=== PATIENT | male | born 1960 | race Caucasian/White ===

== ENCOUNTER 2025-11-03 06:15 | Day surgery (SDC) | payer BC, SELFPAY ==
--- NOTE | 2025-10-14 14:15 | CM ---
Demographics: confirmed
Living situation:Lives independently with
Support Person Post Operatively:
History of
VN: no
SNF: no
Outpatient: [facility] appointment made for 11/07
Has patient purchased required equipment: walker
PCP: Rafy
Pharmacy: [facility]
Post Operative Discharge Plan: SDS, home with [facility]
[2025-10-20 13:06] VITALS: BMI 27.7
[2025-10-20 14:11] LABS: Hematocrit 43.5 % (39.0-52.0); Hemoglobin 14.8 g/dL (13.0-18.0); Mean Corp Hgb Conc. 34.0 g/dL (33.0-37.0); Mean Corpuscular Volume 84.5 fL (80.0-94.0); Platelet Count 262 10^3/uL (130-400); Red Cell Dist. Width 13.2 % (11.5-14.5)
[2025-10-20 15:02] LABS: ALT (SGPT) 43 U/L (0-50); AST (SGOT) 27 U/L (17-59); Albumin 4.5 g/dl (3.5-5.0); Alkaline Phosphatase 40 U/L (38-126); Blood Urea Nitrogen 19 mg/dl (9-20); Calcium 9.4 mg/dl (8.4-10.2); Carbon Dioxide 29 mmol/L (22-30); Chloride 100 mmol/L (98-107); Estimated Creatinine Clearance 78 ml/min; Glucose 107 mg/dl (70-99); Potassium 4.6 mmol/L (3.5-5.1); Sodium 135 mmol/L (135-145); Total Protein 7.4 g/dl (6.3-8.2); eGFR > 60.00
--- NOTE | 2025-10-20 15:32 | VNURNOTE ---
Patient is scheduled for an elective L TKA on 11/03 - he is a same day patient with Dr Ribera. Spoke with patient prior to surgery. Introduced role of [facility] Liaison. Patient reports that he lives with his in a MULTI story home.
Patient confirms that he has a rolling walker, crutches, cane.
Discussed [facility] joint protocol and post surgical plans.
Reviewed that he will have VN services initially and will then start outpatient PT.
Patient selects [facility] for his home care needs and will go to [facility] for outpatient PT. Scheduled for 11/07.
Patient is in agreement with plan and states that his will be home with him. Advised to bring RW with him day of surgery. Patient has a large dog and is aware of pet policy. Referral placed in [facility].
Plan: [facility] per [facility] joint protocol 11/03 then outpt PT on 11/07
[2025-10-20 16:42] VITALS: BMI 27.7
[2025-10-21 08:26] LABS: Glycohemoglobin (HgbA1c) 5.9 % (4.0-5.9)
[2025-11-03] VITALS (13 sets, daily range): BP systolic 113–148; BP diastolic 60–91; PULSE 84; O2SAT 97; BMI 27.7
[2025-11-03] MEDS: CELEBREX 200 MG PO (07:56)
[2025-11-03] MEDS: TYLENOL 650 MG PO (07:56)
[2025-11-03 07:57] LABS: Glucose - Point of Care 110 mg/dl (70-99)
[2025-11-03] MEDS: NORMOSOL-R/PLASMALYTE-A 1000 IV (07:57)
--- NOTE | 2025-11-03 07:57 | W.DS.TRANS ---
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
-
Discharge Instructions:
Sleep Apnea Risk High
Discharge Diagnosis/Procedures L knee OA s/p L TKA w/ Dr Ribera 11/03/25
Diet Diabetic, Carb Controlled
Additional Diets Adequate hydration, minimize opioids, and wear
TEDs stockings to prevent low blood pressure/
dizziness.
Activity As tolerated,With Walker
Driving Restrictions Not until seen by your Dr
Bathing Restrictions OK to Shower
Other Services PT,VN
Wound Care Leave dressing on until seen by surgeon's office
for follow-up.
Instructions:
Stand-Alone Forms: SDS Total Hip and Knee D/C
Changes to Home Medications: Yes
Discharge Medications:
DC Medications w/original date entered in [employer]
cholecalciferol (vitamin D3) 125 mcg (5,000 unit) tablet (Vitamin D3) 125 mcg PO HS 10/12/25
coQ10 (ubiquinol) 100 mg capsule 100 mg PO HS 10/12/25
Held on 11/03/25. Instructions: Resume on 11/11/25.
fenofibrate nanocrystallized 145 mg tablet 145 mg PO HS 10/12/25
metformin 500 mg tablet 1,000 mg PO BIDWMEAL 10/12/25
rosuvastatin 5 mg tablet (Crestor) 5 mg PO HS 10/12/25
cefadroxil 500 mg capsule 500 mg PO BID #14 caps 10/20/25
celecoxib 200 mg capsule (Celebrex) 200 mg PO DAILY #14 caps 10/20/25
famotidine 20 mg tablet (Pepcid) 20 mg PO HS #30 tabs 10/20/25
gabapentin 300 mg capsule 300 mg PO HS neuropathic pain/sleep #10 caps 10/20/25
mupirocin 2 % topical ointment 1 applic intranasal BID #1 tube 10/20/25
ondansetron HCl 4 mg tablet 4 mg PO Q6H PRN nausea and vomiting #30 tabs 10/20/25
oxycodone 5 mg tablet 5 - 10 mg (1 - 2 x 5 mg) PO Q6H PRN moderate-severe pain #30 tabs 10/20/25
Saccharomyces boulardii 250 mg capsule (Florastor) 250 mg PO BID #1 cap 11/03/25
acetaminophen 325 mg tablet (Tylenol) 650 mg (2 x 325 mg) PO QID #1 tab 11/03/25
aspirin 325 mg tablet 325 mg PO DAILY blood clot prevention #1 tab 11/03/25
docusate sodium 100 mg capsule (Colace) 100 mg PO BID stool softner #1 cap 11/03/25
lisinopril 10 mg tablet 10 mg PO HS #0 tabs 11/03/25
magnesium hydroxide 400 mg/5 mL oral suspension (Milk of Magnesia) 30 ml PO HS PRN constipation #1 mL 11/03/25
sennosides 8.6 mg tablet (Senokot) 17.2 mg (2 x 8.6 mg) PO BID laxative #2 tabs 11/03/25
Home Medication Changes
cefadroxil 500 mg capsule 500 mg PO BID #14 caps 10/20/25
celecoxib 200 mg capsule (Celebrex) 200 mg PO DAILY #14 caps 10/20/25
famotidine 20 mg tablet (Pepcid) 20 mg PO HS #30 tabs 10/20/25
gabapentin 300 mg capsule 300 mg PO HS neuropathic pain/sleep #10 caps 10/20/25
mupirocin 2 % topical ointment 1 applic intranasal BID #1 tube 10/20/25
ondansetron HCl 4 mg tablet 4 mg PO Q6H PRN nausea and vomiting #30 tabs 10/20/25
oxycodone 5 mg tablet 5 - 10 mg (1 - 2 x 5 mg) PO Q6H PRN moderate-severe pain #30 tabs 10/20/25
Saccharomyces boulardii 250 mg capsule (Florastor) 250 mg PO BID #1 cap 11/03/25
acetaminophen 325 mg tablet (Tylenol) 650 mg (2 x 325 mg) PO QID #1 tab 11/03/25
aspirin 325 mg tablet 325 mg PO DAILY blood clot prevention #1 tab 11/03/25
docusate sodium 100 mg capsule (Colace) 100 mg PO BID stool softner #1 cap 11/03/25
lisinopril 10 mg tablet 10 mg PO HS #0 tabs 11/03/25
magnesium hydroxide 400 mg/5 mL oral suspension (Milk of Magnesia) 30 ml PO HS PRN constipation #1 mL 11/03/25
sennosides 8.6 mg tablet (Senokot) 17.2 mg (2 x 8.6 mg) PO BID laxative #2 tabs 11/03/25
Pending Results: No
[2025-11-03 11:41] LABS: Glucose - Point of Care 167 mg/dl (70-99)
[2025-11-03] MEDS: ANCEF 5 IV (13:30)
[2025-11-03] MEDS: ROXICODONE 5 MG PO (14:10)
[2025-11-03] MEDS: TYLENOL 1000 MG PO (15:56)
--- NOTE | 2025-11-03 16:56 | OR.RPT ---
Operative Report
Operative Report
Orthopaedic Surgery Operative Note
DATE OF OPERATION: 11/03/2025
PREOPERATIVE DIAGNOSES: Osteoarthritis, left knee.
POSTOPERATIVE DIAGNOSES: Osteoarthritis, left knee.
OPERATION PERFORMED:
1) Left total knee arthroplasty (CPT 11409)
2) Intraosseous administration of analgesic (CPT 38222)
SURGEON: Ziggy Ribera MD
ASSISTANTS: Shahid Franz PA-C who helped with patient and limb positioning and retraction
ANESTHESIA: Spinal by anesthesia plus intraoperative infusion of morphine into the tibial metaphysis by Dr. Ribera
COMPLICATIONS: None.
ESTIMATED BLOOD LOSS: 20mL
DRAINS: None
TOURNIQUET TIME: 54 minutes.
IMPLANTS:
- Zuleima Persona CR Femur, size 10
- Zuleima Persona tibia base plate, size F
- Zuleima Persona ultracongruent articular surface, 10 mm
- DJO [place] bone cement
INDICATIONS: The patient presented to my office with debilitating left knee pain due to osteoarthritis. We reviewed the natural history of this problem, as well as the risks, benefits, and alternatives of various treatment options. The patient
exhausted all nonoperative treatment options and wished to proceed with knee replacement surgery. The patient understood the risks which included, but were not limited to, bleeding, infection, failure to relieve pain, more pain than preop, damage to
blood vessels and nerves, need for reoperation, mechanical failure of the implants, wound healing problems, stiffness, instability, blood clot, pulmonary embolism, myocardial infarction, pneumonia, arrhythmia, CVA, and . The patient accepted
these risks and wished to proceed. All questions were answered, and informed consent was obtained.
PROCEDURE IN DETAIL: The patient was identified in the preoperative holding area. The left knee was identified as the operative site. The patient was taken in the operating room and placed in a supine position on the operating table. Spinal
anesthesia was performed. IV antibiotics and tranexamic acid were administered. An SCD was placed on the right lower extremity. A well-padded tourniquet was placed on the proximal thigh. All bony prominences were well padded. The left lower
extremity was prepped and draped in the usual sterile fashion. He had marked stiffness to about 80 degrees prior to surgery.
We performed a surgical time-out. An interarticular block was performed with local anesthetic with epinephrine. The limb was exsanguinated with an Esmarch bandage, then the tourniquet was inflated to 250 mmHg. I performed interosseous administration
of morphine-saline solution via a Jamshidi style intraosseous needle into the proximal medial tibial metaphysis as described by Brennan Ohara MD. This was performed to aid in pain control. A midline skin incision was made followed by a medial
parapatellar arthrotomy. A subperiosteal peel was performed on the medial tibia. I excised part of the infrapatellar fat pad to improve our visualization as well as tissue over anterior femur. The patella was everted and the knee was flexed. I
excised the remnants of the anterior and posterior cruciate ligaments as well as tibial and femoral osteophytes with rongeurs.
The knee was flexed, and the extramedullary tibial cutting guide was aligned. Mccormick was aligned at neutral, rotation was centered on the tibial tubercle, and coronal alignment was aligned with the mechanical axis of the tibia and center of the ankle
joint. The cut height was 10mm off the lateral tibia joint surface. The guide was secured into place. The MCL and LCL were protected. The tibia surface was cut. The cut surface was inspected after removal to ensure appropriate height and slope based
on the preoperative plan. The cut was checked with a drop chito. It was centered nicely at the ankle.
A drill was used to open the femoral canal. The intramedullary distal femoral cutting guide was inserted into the femur. This was set at 5 degrees +0. This was secured into place with three pins. The cut level was checked with an art wing. The
distal femur was cut through the cutting guide. The IM guide was reinserted to double check that the level of resection was flush and in appropriate alignment.
Waskish's line and the transepicondylar axis were marked on the femur. The femoral sizing guide was applied to the anterior femur. Pins were inserted, and the 4-in-1 cutting guide was applied and secured into place. The rotation was compared to
Waskish's line, the transepicondylar axis, and the neutral tibia cut and was found to be appropriate. The width was checked and found to be appropriate and lateralized on the femur. The anterior, posterior, and chamfur cuts were made. A lamina
java j2ee technical lead was used to open the flexion gap, and posterior osteophytes were removed with a curved osteotome. The remnant medial and lateral meniscus were also removed. I prophylactically cauterized the lateral geniculate arteries. A 10mm spacer block
was applied to the flexion gap and was noted to be balanced medially and laterally. The knee was extended, and the block showed symmetric to extension and flexion gaps.
The tibia was exposed and sized. Rotation was set in line with the tibial tubercle and congruent with the femur. The trial was secured into place with two pins. The trial femur was impacted into place, and a trial articular surface was placed. The
knee was taken through range of motion and noted to be stable throughout the arc of motion without gaping or excess tension. The patella tracked centrally throughout the arc of motion without need for further releases. No full thickness defects.
The trials were removed. The tibia keel was prepared with the punch and the drill. The bone surfaces were irrigated with sterile saline and dried. The cement was mixed in a vacuum mixer. Cement gun was used to apply cement to the tibial surface and
the undersurface of the tibial implant. Cement was pressurized into the tibial canal and tibia surface. The tibial component was impacted into place. Excess cement was removed. Cement was applied to the femoral surface and the femoral component. The
femoral component was impacted into place, and excess cement removed. A trial articular surface was inserted, and the knee was extended while the cement polymerized. The tourniquet was let down, and meticulous hemostasis was achieved. Dilute
betadine was poured into the wound and allowed to soak for 3 minutes. The knee was irrigated with copious normal saline.
Once the cement was polymerized, the trial articular surface was removed. Any excess cement was removed. The knee was trialed, and the final articular surface was selected and inserted into the tibial locking mechanism. The knee was reduced. A fresh
drape was applied to the surgical field.
The arthrotomy was closed with 0-PDS. Once closed, an interarticular block was performed with local anesthetic with epi. The deep dermal layer was closed with 2-0 monofilament and the subcuticular skin was closed with 3-0 monofilament A skin glue
bandage was applied to the skin in full flexion. Once this was completely dry, a sterile waterproof dressing was applied.
The anesthesia team performed an adductor canal block in the OR. The patient awoke from anesthesia without any difficulties. The sponge and instrument counts were correct x2 at the end of the case.
Tyshawn Ribera MD
== END 2025-11-03 17:15 | disposition home health service (06) ==
LOC: SDS 06:15
PROVIDERS: ATTENDING PHYSICIAN Orthopaedic Surgery; REFERRING PHYSICIAN Family Medicine
DX: M17.12 Unilateral primary osteoarthritis, left knee (principal)
CPT/HCPCS: 27447; 36680; C1776; C1713; 73560; 80053; 82962; 83036; 85027; 87070; 93005; 97162